=== PATIENT | female | born 2000 | race Caucasian/White ===

== ENCOUNTER 2021-11-30 04:12 | Emergency (ER) | payer OTHER ==
[2021-11-30 04:24] VITALS: BP 125/85; PULSE 82; RESP 17; TEMP 98.1; BMI 31.0
[2021-11-30] MEDS ORDERED: ONDANSETRON 4 MG/2 ML VIAL IVPUSH ONE (04:35)
[2021-11-30] MEDS ORDERED: SODIUM CHLORIDE 0.9% 500 ML INFUS.BAG IV ONE (04:35)
[2021-11-30] MEDS ORDERED: FAMOTIDINE 20 MG/50 ML IVPB 20 MG/50 ML MG IVPB ONE ×2 (04:35→04:51)
[2021-11-30] MEDS ORDERED: MAG HYDROX/AL HYDROX/SIMETH 30 ML UNIT-DOSE CUP PO ONE (04:35)
[2021-11-30] MEDS ORDERED: MAG HYDROX/AL HYDROX/SIMETH 30 ML UNIT-DOSE CUP ONE (04:50)
[2021-11-30] MEDS ORDERED: ONDANSETRON 4 MG/2 ML VIAL ONE (04:51)
[2021-11-30 05:23] LABS: MCHC 33.3 g/dl (32.0-36.0); MEAN CELL VOLUME 86.9 fl (80-96); MEAN PLT VOLUME 9.3 fl (7.5-11.1); PLATELET COUNT 266 10^3/uL (134-434); RBC 4.84 M/mm3 (3.60-5.2); RDW 12.7 % (11.6-15.6); WHITE BLOOD COUNT 13.4 K/mm3 (4.0-10.0)
[2021-11-30 05:27] LABS: EPI CELLS >36 /uL (0-25.1); HYALINE CASTS 5 /uL (0-3.1); PH,URINE 6.5 (5.0-8.0); URINE APPEARANCE CLOUDY; URINE BACTERIA 1415 /uL (0-1359); URINE BILIRUBIN NEGATIVE (NEGATIVE); URINE COLOR YELLOW; URINE GLUCOSE (UA) NEGATIVE (NEGATIVE); URINE KETONE 1+ (NEGATIVE); URINE LEUK ESTERASE 1+ (NEGATIVE); URINE NITRITE NEGATIVE (NEGATIVE); URINE PROTEIN TRACE (NEGATIVE); URINE RBC 13 /uL (0-23.9); URINE WBC 68 /uL (0-25.8)
[2021-11-30 05:44] LABS: CALCIUM 9.1 mg/dL (8.5-10.1)
[2021-11-30 05:45] LABS: ALBUMIN 4.6 g/dl (3.4-5.0); BLOOD UREA NITROGEN 14.2 mg/dL (7-18)
[2021-11-30 05:48] LABS: CREATININE 0.8 mg/dL (0.55-1.3)
[2021-11-30 05:49] LABS: BILIRUBIN,TOTAL 0.9 mg/dL (0.2-1); TOT PROT 7.8 g/dl (6.4-8.2)
[2021-11-30 07:01] LABS: ANISOCYTOSIS 3+; MACROCYTOSIS 0
== END 2021-11-30 06:17 | disposition home or self-care (01) ==
LOC: JER 04:12
PROC: 3E033GC Introduction of Other Therapeutic Substance into Peripheral Vein, Percutaneous Approach (ICD-10-PCS; principal; 2021-11-30)
DX: R11.10 Vomiting, unspecified (principal)
CPT/HCPCS: 0241U-QW; 36415; 80053; 81003; 84703; 85025; 87077; 87086; 99284-25

== ENCOUNTER 2022-09-20 19:57 | Emergency (ER) | payer OTHER ==
[2022-09-20 20:09] VITALS: BP 132/86; PULSE 60; RESP 20; TEMP 98.5; BMI 28.8
[2022-09-20] MEDS ORDERED: KETOROLAC TROMETHAMINE 30 MG/1 ML VIAL IM ONE (21:06)
[2022-09-20] MEDS ORDERED: KETOROLAC TROMETHAMINE 30 MG/1 ML VIAL ONE (21:08)
== END 2022-09-20 22:03 | disposition home or self-care (01) ==
LOC: JER 19:57 → JERFT 19:57
PROC: 3E0233Z Introduction of Anti-inflammatory into Muscle, Percutaneous Approach (ICD-10-PCS; principal; 2022-09-20)
DX: M54.50 Low back pain, unspecified (principal)
CPT/HCPCS: 72100-TC-FY; 96372; 99284-25